=== PATIENT | male | born 1945 | race Caucasian/White ===

== ENCOUNTER 2018-09-22 11:52 | Inpatient (IN) | payer OTHER | END 2018-10-01 19:10 | disposition home or self-care (01) | LOC: EDH 11:52 → 4BH 09-30 17:30 → EDHIP 18:03 → 3BH 21:22 | DX: M47.816 Spondylosis without myelopathy or radiculopathy, lumbar region (principal); I71.4 Abdominal aortic aneurysm, without rupture; R53.81 Other malaise; M54.30 Sciatica, unspecified side; R73.9 Hyperglycemia, unspecified ==

== ENCOUNTER 2018-10-07 15:42 | Emergency (ER) | payer OTHER ==
[~2018-10-07 15:42] MED LIST: ATOR40TA69 PO; CHOL200074 PO; FLUT16H NS; GABA-531 PO; HYDR-4064 PO; INDA2.5T5 PO
[2018-10-07] MEDS ORDERED: BUPIVACAINE/PF 0.5% 30ML VIAL ONE (17:19)
[2018-10-07] MEDS ORDERED: LIDOCAINE HCL 2% 20ML ONE (17:20)
[2018-10-07] MEDS ORDERED: LIDOCAINE HCL 1% 20 ML VIAL ONE (17:22)
== END 2018-10-07 18:53 | disposition home or self-care (01) ==
LOC: EDH 15:42
DX: S63.275A Dislocation of unspecified interphalangeal joint of left ring finger, initial encounter (principal); S09.8XXA Other specified injuries of head, initial encounter; I25.810 Atherosclerosis of coronary artery bypass graft(s) without angina pectoris; Z88.8 Allergy status to other drugs, medicaments and biological substances; W18.39XA Other fall on same level, initial encounter; Y93.89 Activity, other specified; Y92.89 Other specified places as the place of occurrence of the external cause; Y99.8 Other external cause status
CPT/HCPCS: 26770; 70450; 73130; 73140; 99284; J3490

== ENCOUNTER → 2019-12-29 | Outpatient (CLI) | payer OTHER ==
[~2019-12-29] MED LIST changes: +REGADENOSON 0.4 MG/5 ML PF SYG IVP SCH
== END | disposition home or self-care (01) ==
LOC: RAH 08:26
PROVIDERS: ATTEND Internal Medicine
DX: Z04.89 Encounter for examination and observation for other specified reasons (principal); I25.2 Old myocardial infarction
CPT/HCPCS: 78452; 93017; 96374; A9500 ×2; J2785

== ENCOUNTER → 2020-01-02 | Outpatient (CLI) | payer OTHER ==
[~2020-01-02] MED LIST changes: -REGADENOSON 0.4 MG/5 ML PF SYG IVP SCH
== END | disposition home or self-care (01) ==
LOC: SHCH 12:56
PROVIDERS: ATTEND Internal Medicine Cardiovascular Disease
DX: I08.1 Rheumatic disorders of both mitral and tricuspid valves (principal); I48.92 Unspecified atrial flutter
CPT/HCPCS: 93306; 93356

== ENCOUNTER 2020-02-16 06:57 | Day surgery (SDC) | payer OTHER ==
[2020-02-14 14:38] LABS: BASOPHILS % (AUTO) 0.7 % (0.0-5.0); EOSINOPHILS % (AUTO) 1.8 % (0.0-8.0); HEMATOCRIT 44.6 % (42-54); LYMPHOCYTES % (AUTO) 18.8 % (21.0-51.0); MEAN CORPUSCULAR HEMOGLOBIN 32.3 pg (27.0-33.0); MEAN CORPUSCULAR HGB CONC 32.5 g/dL (32.0-36.0); MEAN CORPUSCULAR VOLUME 99.3 fL (79-99); MONOCYTES % (AUTO) 8.1 % (3.0-13.0); NEUTROPHILS % (AUTO) 69.9 % (40.0-77.0); PLATELET COUNT (AUTO) 158 K/uL (130-400); RED BLOOD CELL COUNT(AUTO) 4.49 MIL/uL (4.50-6.20); RED CELL DISTRIBUTION WIDTH 15.2 % (11.0-15.5); WHITE BLOOD COUNT (AUTO) 7.7 K/uL (4.8-10.8)
[2020-02-14 14:48] LABS: INR 0.97 (0.85-1.15); PARTIAL THROMBOPLASTIN TIME 28.3 SEC (26.3-35.5); PROTHROMBIN TIME 10.5 SEC (9.6-11.6)
[2020-02-14 14:53] LABS: CREATININE 1.2 mg/dL (0.5-1.5); POTASSIUM 4.9 mmol/L (3.5-5.1)
[2020-02-15 12:37] VITALS: BP 132/84
[2020-02-16] VITALS (9 sets, daily range): BP systolic 98–134; BP diastolic 55–80
[~2020-02-16] VITALS: Ht 175.3 cm; Wt 87.4 kg
[~2020-02-16 06:57] MED LIST changes: +APIX5TAB PO; +CARV3.12 PO; -CHOL200074 PO; -FLUT16H NS; -HYDR-4064 PO; +SODIUM CHLORIDE 0.9% 1000ML 1,000 ML IV SCH
[2020-02-16] MEDS ORDERED: PSYL0.525 PO (09:11)
[2020-02-16] MEDS ORDERED: ACET325C6 PO (09:11)
[2020-02-16] MEDS ORDERED: HYDROCHLOROT PO (09:11)
[2020-02-16] MEDS ORDERED: VITAMIN D3 PO (09:11)
[2020-02-16] MEDS ORDERED: DIPH25 PO (09:11)
--- NOTE | 2020-02-16 09:13 | NUR ---
PROCEDURE PT HERE FOR PROCEDURE. DENIES ANY PAIN AT THIS TIME.
[2020-02-16] MEDS ORDERED: MEPERIDINE-PF 25 MG/ML SYG ONE ×5 (09:30→11:42)
[2020-02-16] MEDS ORDERED: MIDAZOLAM HCL 1 MG/ML 2ML VIAL ONE ×4 (09:30→11:16)
[2020-02-16] MEDS ORDERED: LIDOCAINE HCL 2% 20ML ONE (09:31)
--- NOTE | 2020-02-16 09:45 | NUR ---
PROCEDURE PT TAKEN TO ADMINISTRATIVE TECH VIA STAFF CARLO SCHMID
--- NOTE | 2020-02-16 13:10 | NUR ---
PROCEDURE PT INSTRUCTED ON IMPORTANCE OF NOT MOVING RIGHT LEG. SITE TO RIGHT FEMORAL DRY AND INTACT. NO BLEEDING, SWELLING NOTED TO SITE.
--- NOTE | 2020-02-16 14:10 | NUR ---
REPORT REPORT GIVEN TO CARLO BROUSSARD.
--- NOTE | 2020-02-16 15:30 | NUR ---
dc dc intructions given to pts friend Hipolito nath, instructed to resume eliquis tongemma and f/u with dr. jimenez. right groin with dressing dry and intac.t no distress noted.
--- NOTE | 2020-02-16 15:50 | NUR ---
DC PT DC HOME VIA WC,NO DISTRESS NOTED. PT DENIED ANY PAIN OR DISCOMFORTS. PT ACCOMPANIED BY FAMILY FRIEND, RIGHT GROIN DRESSING DRY AND INTACT, NO BLEEDING OR HEMATOMA TO SITE
== END 2020-02-16 15:50 | disposition home or self-care (01) ==
LOC: DAH 06:57
PROVIDERS: ATTEND Internal Medicine Cardiovascular Disease
DX: I48.3 Typical atrial flutter (principal); I25.10 Atherosclerotic heart disease of native coronary artery without angina pectoris; Z95.1 Presence of aortocoronary bypass graft; Z88.8 Allergy status to other drugs, medicaments and biological substances; Z79.899 Other long term (current) drug therapy; Z79.01 Long term (current) use of anticoagulants
CPT/HCPCS: 36415; 80048; 85025; 85610; 85730; 93005; 93613; 93621; 93653; A4215; A4216; A4221; A4222; A4223 ×3; A4606; A4649 ×2; A4663; C1730; C1732; C1893; C1894 ×2; J1644 ×2; J2175 ×5; J2250 ×4; J3490; J7030; 99156; 99157

== ENCOUNTER 2021-03-04 06:24 | Observation (INO) | payer OTHER ==
[2021-02-26 16:20] VITALS: BP 168/82
[2021-02-26 16:33] LABS: BASOPHILS % (AUTO) 0.8 % (0.0-5.0); EOSINOPHILS % (AUTO) 2.2 % (0.0-8.0); HEMATOCRIT 48.9 % (42-54); LYMPHOCYTES % (AUTO) 16.8 % (21.0-51.0); MEAN CORPUSCULAR HEMOGLOBIN 32.3 pg (27.0-33.0); MEAN CORPUSCULAR HGB CONC 32.5 g/dL (32.0-36.0); MEAN CORPUSCULAR VOLUME 99.4 fL (79-99); MONOCYTES % (AUTO) 8.2 % (3.0-13.0); PLATELET COUNT (AUTO) 192 K/uL (130-400); RED BLOOD CELL COUNT(AUTO) 4.92 MIL/uL (4.50-6.20); RED CELL DISTRIBUTION WIDTH 15.4 % (11.0-15.5); WHITE BLOOD COUNT (AUTO) 9.1 K/uL (4.8-10.8)
[2021-02-26 16:48] LABS: INR 0.99 (0.85-1.15); PROTHROMBIN TIME 10.8 SEC (9.6-11.6)
[2021-02-26 16:49] LABS: PARTIAL THROMBOPLASTIN TIME 26.2 SEC (26.3-35.5)
[2021-02-26 16:52] LABS: CREATININE 1.4 mg/dL (0.5-1.5); POTASSIUM 4.2 mmol/L (3.5-5.1)
[2021-03-04] VITALS (23 sets, daily range): BP systolic 99–139; BP diastolic 41–84
[~2021-03-04] VITALS: Ht 177.8 cm; Wt 86.0 kg
[~2021-03-04 06:24] MED LIST changes: -APIX5TAB PO; +BIOT10006 PO; +DIPH25 PO; +HYDROCHLOROT PO; -INDA2.5T5 PO; +PSYL0.525 PO; -SODIUM CHLORIDE 0.9% 1000ML 1,000 ML IV SCH; +VITAMIN D3 PO
[2021-03-04] MEDS: CEFAZOLIN SODIUM 1 GM VIAL IVP ONE ×2 (07:53→10:30)
[2021-03-04] MEDS ORDERED: ROPIVICAINE 250MG+KETOROLAC 15MG+EPINEPHRINE 0.3+CLONIDINE 80 IV PRN ×5 (08:00)
[2021-03-04] MEDS ORDERED: LACTATED RINGERS 1000ML 1,000 ML IV SCH (08:00)
[2021-03-04] MEDS ORDERED: SUCCINYLCHOLINE CHLORIDE 20 MG/ML 10 ML VIAL ONE (08:25)
[2021-03-04] MEDS ORDERED: LIDOCAINE PF 100MG/5ML (2%) SYRINGE 5ML ONE (08:25)
[2021-03-04] MEDS ORDERED: PROPOFOL 10 MG/ML 20ML VIAL IV ONE (08:26)
[2021-03-04] MEDS ORDERED: ROCURONIUM 10MG/1ML SYR 10 MG/ML ML ONE ×2 (08:26→12:04)
[2021-03-04] MEDS ORDERED: FENTANYL CITRATE PF 50 MCG/1 ML 2ML VIAL ONE (08:26)
[2021-03-04] MEDS ORDERED: GLYCOPYRROLATE 1 MG/5 ML SYRINGE ONE (10:07)
[2021-03-04] MEDS ORDERED: TRANEXAMIC ACID 1000MG/10ML ONE (10:23)
[2021-03-04] MEDS: 0.9%NACL 1000ML 1,000 ML IV SCH ×2 (10:30→20:32)
[2021-03-04] MEDS ORDERED: ONDANSETRON 4MG INJ IVP PRN (10:30)
[2021-03-04] MEDS ORDERED: MORPHINE 4 MG SYG IVP PRN (10:30)
[2021-03-04] MEDS ORDERED: OXYCODONE HCL 5 MG TAB PO PRN (10:30)
[2021-03-04] MEDS ORDERED: ACETAMINOPHEN 500 MG TABLET PO SCH (10:30)
[2021-03-04] MEDS ORDERED: HYDROCODONE/ACETAMINOPHEN 5/325 MG TAB PO PRN (10:30)
[2021-03-04] MEDS: FAMOTIDINE 20MG TAB PO SCH (11:56)
[2021-03-04] MEDS: TRAMADOL HCL 50 MG TABLET PO SCH ×2 (12:00→18:53)
[2021-03-04] MEDS ORDERED: NEOSTIGMINE 5MG/5ML SYR IV ONE (13:01)
[2021-03-04] MEDS ORDERED: MEPERIDINE-PF 25 MG/ML SYG ONE ×2 (13:06→14:00)
[2021-03-04] MEDS ORDERED: ONDANSETRON 4MG INJ ONE (13:07)
[2021-03-04] MEDS: CEFAZOLIN SODIUM 1 GM VIAL IVP SCH (18:53)
[2021-03-04] MEDS: GABAPENTIN 300 MG CAPSULE PO SCH (21:54)
[2021-03-04] MEDS: ACETAMINOPHEN 500 MG TABLET PO SCH (22:02)
[2021-03-05] MEDS: CEFAZOLIN SODIUM 1 GM VIAL IVP SCH (00:33)
[2021-03-05 03:34] VITALS: BP 99/51
[2021-03-05 04:32] LABS: HEMATOCRIT 32.9 % (42-54); MEAN CORPUSCULAR HEMOGLOBIN 32.9 pg (27.0-33.0); MEAN CORPUSCULAR HGB CONC 33.1 g/dL (32.0-36.0); MEAN CORPUSCULAR VOLUME 99.4 fL (79-99); RED BLOOD CELL COUNT(AUTO) 3.31 MIL/uL (4.50-6.20); RED CELL DISTRIBUTION WIDTH 15.2 % (11.0-15.5); WHITE BLOOD COUNT (AUTO) 9.4 K/uL (4.8-10.8)
[2021-03-05 04:42] LABS: CREATININE 1.1 mg/dL (0.5-1.5)
[2021-03-05] MEDS: TRAMADOL HCL 50 MG TABLET PO SCH ×4 (06:32→17:23)
[2021-03-05] MEDS: 0.9%NACL 1000ML 1,000 ML IV SCH (06:33)
[2021-03-05] MEDS: ACETAMINOPHEN 500 MG TABLET PO SCH ×2 (06:33→13:09)
[2021-03-05 08:00] VITALS: BP 111/72
[2021-03-05] MEDS ORDERED: POLYETHYLENE GLYCOL 3350 17 GM POWD.PACK PO SCH (09:00)
[2021-03-05] MEDS ORDERED: CARVEDILOL 3.125 MG TABLET PO SCH (09:00)
[2021-03-05] MEDS ORDERED: ENOXAPARIN SODIUM 30 MG/0.3 ML SQ SCH (09:00)
[2021-03-05] MEDS ORDERED: HYDROCHLOROTHIAZIDE 25 MG TABLET PO SCH (09:00)
[2021-03-05] MEDS: GABAPENTIN 300 MG CAPSULE PO SCH (10:02)
[2021-03-05] MEDS: FAMOTIDINE 20MG TAB PO SCH (10:02)
[2021-03-05 12:00] VITALS: BP 120/55
[2021-03-05 16:00] VITALS: BP 113/55
== END 2021-03-05 18:48 | disposition home or self-care (01) ==
LOC: DAH 06:24 → DAHIP 06:25 → 4AH 14:40
PROVIDERS: ADMIT Orthopaedic Surgery; ATTEND Orthopaedic Surgery
DX: M16.11 Unilateral primary osteoarthritis, right hip (principal); D64.9 Anemia, unspecified; I10 Essential (primary) hypertension; Z20.822 Contact with and (suspected) exposure to COVID-19; Z96.651 Presence of right artificial knee joint; Z79.01 Long term (current) use of anticoagulants; Z79.899 Other long term (current) drug therapy
CPT/HCPCS: 27130; 36415 ×2; 72170; 73502; 73503; 80048 ×2; 85025; 85027; 85610; 85730; 87635; 87641; 88305; 88311; 96361 ×2; 96372; 96374; 96376; 97039 ×2; 97116 ×2; 97161; A4215; A4221; A4222; A4223; A4344; A4606; A4649 ×7; A4663; A4930; A6212; A6260; A9272; C1776; C9803; G0378 ×29; G8978; G8979; G8980; G8981; G8982; G8983; J0330; J0690 ×3; J1650; J2001; J2175 ×2; J2405; J2704; J2710; J3010; J3490 ×2; J7030 ×2; J7040; J7120 ×2

== ENCOUNTER → 2022-02-18 | Outpatient (CLI) | payer OTHER ==
[~2022-02-18] MED LIST changes: +REGADENOSON 0.4 MG/5 ML PF SYG IVP SCH
== END | disposition home or self-care (01) ==
LOC: RAH 09:02
PROVIDERS: ATTEND Internal Medicine
DX: I11.0 Hypertensive heart disease with heart failure (principal); I50.9 Heart failure, unspecified
CPT/HCPCS: 78452; 93017; 96374; A9500 ×2; J2785